=== PATIENT | female | born 1975 | race African-American/Black ===

== ENCOUNTER 2020-02-09 13:12 | Outpatient (CLI) | payer OTHER, SELFPAY ==
--- NOTE | ~2020-02-09 | US_ITS ---
EXAMINATION: US pelvic complete w TV DATE: 02/09/2020 13:45 INDICATION: Abnormal uterine bleeding, pelvic and right lower quadrant pain TECHNIQUE: Multiple transabdominal and endovaginal sonographic images of the pelvis were obtained. COMPARISON: None. FINDINGS: The uterus measures 14.4 x 8.3 x 11 cm. There is a 6.8 x 6.4 x 7 cm circumscribed heterogen eous mass of the right uterine body which has the appearance of an intramural fibroid. A 5.6 x 5.2 x 5.3 cm circumscribed heterogeneous mass of the left uterine body has the appearance of a subserosal f ibroid. The endometrial complex measures 7 mm. The right ovary measures 3.7 x 2.2 x 3.9 cm. The left ovary measures 2.8 x 1.8 x 1.7 cm. There is normal vascular flow in the ovaries. There is no free flu id in the pelvis. IMPRESSION: 1. Uterine fibroids as described above. Reviewed, dictated and finalized at location A. LIFE CONTROL OPERATOR
== END 2020-02-09 13:13 ==
PROVIDERS: PCP Internal Medicine; Visit Provider Obstetrics & Gynecology
DX: N93.9 Abnormal uterine and vaginal bleeding, unspecified (principal); D25.9 Leiomyoma of uterus, unspecified
CPT/HCPCS: 76830; 76856

== ENCOUNTER 2021-06-05 04:25 | Emergency (ER) | payer BC, SELFPAY ==
--- NOTE | ~2021-06-05 | CT_ITS ---
EXAMINATION: CT abdomen pelvis w con DATE: 06/05/2021 06:12 INDICATION: Right lower quadrant pain. TECHNIQUE: Computed tomography (CT) of the abdomen and pelvis was performed without intravenous contr ast. Automated exposure control and iterative reconstruction technique were employed. The dose-length product was 1437.94 mGy-cm. COMPARISON: None FINDINGS: Lung bases are clear. Heart size is normal. No pericardial or pleural effusion. 8.3 x 6.4 cm likely c avernous hemangioma at the posterior dome of the liver with peripheral discontiguous puddling of cont rast isointense to the aorta. Gallbladder, spleen, pancreas and bilateral adrenal glands are normal. Bilateral renal cysts, the largest on the right measuring up to 1.8 cm. There are few scattered colon ic diverticula without adjacent inflammatory change to suggest diverticulitis. The small bowel and ap pendix are normal. Bladder is normal. The uterus is not identified and has likely been surgically res ected. 3.9 cm right ovarian cyst. Small amount of ascites in the pelvis. No abscess or free intraperi toneal gas. No pathologically enlarged abdominal or pelvic lymphadenopathy. Bones are unremarkable. IMPRESSION: 1. Small amount of likely physiologic free fluid in the pelvis. No other acute intra-abdominal/pelvic process. 2. 3.9 cm right ovarian cyst. 3. 8.3 cm hepatic hemangioma. Reviewed, dictated and finalized at location A.
[2021-06-05 04:28] VITALS: BP 150/96; PULSE 84; RESP 16; TEMP 36.3; O2SAT 100
[2021-06-05 04:48] LABS: Basophils Percent Auto 0.3 % (0.2-1.2); Eosinophils Percent Auto 0.6 % (0-4.4); Hematocrit 38.1 % (37.0-47.0); Hemoglobin 11.9 g/dL (12.0-15.0); Immature Granulocyte Absolute 0.01 K/mm3 (0.00-0.031); Immature Granulocyte Percent A 0.1 % (0-0.5); Lymphocytes Absolute Auto 1.62 K/mm3 (0.9-3.2); Lymphocytes Percent Auto 24.1 % (18.3-44.2); Mean Corpuscular HGB Conc 31.2 g/dl (32-36); Mean Corpuscular Hemoglobin 28.5 pg (26-34); Mean Corpuscular Volume 91.1 fl (80-100); Mean Platelet Volume 11.7 fl (7.4-10.4); Monocytes Absolute Auto 0.5 K/mm3 (0.1-0.6); Neutrophils Absolute Auto 4.5 K/mm3 (1.3-6.7); Neutrophils Percent Auto 66.9 % (45.5-73.1); Platelet Count Result 172 k/mm3 (150-375); Red Blood Count 4.18 M/mm3 (4.2-5.4); Red Cell Distribution Width 13.5 % (11.5-14.5); White Blood Count 6.7 K/mm3 (4.5-10.0)
--- NOTE | 2021-06-05 04:53 | ED.ABDPAIN ---
HPI - Abdominal Pain General Chief Complaint: Abdominal Pain <Coy Blount MD - Last Filed: 06/05/21 04:54> Stated Complaint: RLQ ABD PAIN <Coy Blount MD - Last Filed: 06/05/21 04:54> Time Seen by Provider: 06/05/21 04:42 <Coy Blount MD - Last Filed: 06/05/21 04:54> Source: patient <Coy Blount MD - Last Filed: 06/05/21 04:54> Mode of arrival: ambulatory <Coy Blount MD - Last Filed: 06/05/21 04:54> Limitations: no limitations <Coy Blount MD - Last Filed: 06/05/21 04:54> History of Present Illness HPI narrative: Patient is a 45-year-old female complain right lower quadrant pain, 7 out of 10, sharp, nonradiating started last night. Patient denies any chest pain, shortness of breath, nausea, vomiting, diarrhea, urinary symptoms, fever or chills <Coy Blount MD - Last Filed: 06/05/21 04:54> Related Data Allergies/Adverse Reactions: Allergies Allergy/AdvReac Type Severity Reaction Status Date / Time No Known Allergies Allergy Verified 06/05/21 04:35 <Cyo Blount MD - Last Filed: 06/05/21 04:54> Review of Systems Review of Systems: All systems reviewed & are unremarkable except as noted in HPI and below <Coy Blount MD - Last Filed: 06/05/21 04:54> Constitutional: Constitutional: Denies body ache(s), Denies chills, Denies excessive sweating, Denies fatigue, Denies fever(s), Denies headache(s), Denies lethargy, Denies malaise, Denies weakness and Denies weight loss <Coy Blount MD - Last Filed: 06/05/21 04:54> Eyes: Eyes: Denies blurry vision, Denies change in vision and Denies loss of vision <Coy Blount MD - Last Filed: 06/05/21 04:54> ENT: Denies dizziness, Denies ear discharge, Denies headache(s), Denies lip swelling, Denies epistaxis, Denies nasal congestion, Denies neck pain, Denies throat swelling and Denies tongue swelling <Coy Blount MD - Last Filed: 06/05/21 04:54> Cardiovascular: Cardiovascular: Denies chest pain, Denies chest pain at rest, Denies chest pain with activity, Denies diaphoresis, Denies rapid heart rate, Denies edema, Denies irregular heart rhythm, Denies lightheadedness, Denies palpitations, Denies dyspnea and Denies dyspnea on exertion <Coy Blount MD - Last Filed: 06/05/21 04:54> Respiratory: Respiratory: Denies chest congestion, Denies cough, Denies hemoptysis, Denies dyspnea and Denies dyspnea on exertion <Coy Blount MD - Last Filed: 06/05/21 04:54> Gastrointestinal: Gastrointestinal: Denies melena, Denies hematochezia, Denies diarrhea, Denies nausea, Denies vomiting and Denies hematemesis <Coy Blount MD - Last Filed: 06/05/21 04:54> Musculoskeletal: Musculoskeletal: Denies abnormal gait, Denies deformity, Denies joint swelling, Denies limited range of motion, Denies neck pain and Denies numbness <Coy Blount MD - Last Filed: 06/05/21 04:54> Neurologic: Denies Abnormal speech present, Denies abnormal gait, Denies confusion, Denies dizziness, Denies headache(s), Denies focal weakness, Denies loss of vision, Denies numbness, Denies Other visual disturbances, Denies Sensory deficit (Neuro) and Denies weakness <Coy Blount MD - Last Filed: 06/05/21 04:54> Psychiatric: Psychiatric: Denies confusion, Denies depression, Denies auditory hallucinations, Denies homicidal ideation and Denies suicidal ideation <Coy Blount MD - Last Filed: 06/05/21 04:54> Endocrine: Endocrine: Denies cold intolerance, Denies excessive sweating, Denies fatigue, Denies heat intolerance and Denies palpitations <Coy Blount MD - Last Filed: 06/05/21 04:54> Hematologic/Lymphatic: Hematologic/Lymphatic: Denies easy bleeding and Denies easy bruising <Coy Blount MD - Last Filed: 06/05/21 04:54> Allergic/Immunologic: Allergic/Immunologic: Denies lip swelling, Denies throat swelling and Denies tongue swelling <Coy Blount MD - [place]
[2021-06-05 05:03] LABS: Alanine Aminotransferase 121 U/L (4-35); Albumin Level 4.6 g/dL (3.5-5.1); Alkaline Phosphatase 56 U/L (38-126); Anion Gap 10 mmol/L (8-16); Aspartate Amino Transferase 94 U/L (14-36); Bilirubin,Total 0.6 mg/dL (0.2-1.3); Blood Urea Nitrogen 5 mg/dL (7-17); Calcium 8.4 mg/dL (8.4-10.2); Carbon Dioxide 24 mmol/L (22-30); Chloride 103 mmol/L (98-107); Estimated CRCL calculation 143 ml/min; Estimated Glomerular Filt Rate > 60; Glucose 127 mg/dL (65-110); Lipase 39 U/L (23-300); Potassium 3.5 mmol/L (3.4-5.0); Sodium 137 mmol/L (137-145)
[2021-06-05] MEDS: SODIUM CHLORIDE 0.9% IV 1,000 ML 999 ML IV CONT (05:21)
[2021-06-05] MEDS: MORPHINE SULFATE (*CRX) 2 MG/ML INJ IV PUSH (05:22)
[2021-06-05] MEDS: ONDANSETRON INJ 4 MG/2 ML VIAL IV PUSH (05:23)
[2021-06-05 05:29] LABS: Add Urine Microscopic? YES; Appearance Urine Cloudy (Clear); Bacteria Urine Trace /hpf; Bilirubin Urine Negative (Negative); Blood Urine Negative (Negative); Color Urine Yellow (Yellow); Glucose Urine UA Negative (Negative); Ketones Urine 2+ mg/dL (Negative); Leukocyte Esterase Ur Trace LEU/UL (Negative); Mucus Urine Few /lpf; Nitrate Urine Negative (Negative); Protein Urine Negative (Negative); Specific Grav Ur 1.021 (1.001-1.035); Squamous Epithelial Cell Urine Many /hpf (Few); Urobilinogen Urine Negative mg/dL (<2.0)
[2021-06-05 07:11] VITALS: BP 143/94; PULSE 81; RESP 18; O2SAT 99
--- NOTE | 2021-06-05 07:20 | PC.NURSE ---
Assumed care of pt at this time, pt is alert and upright on stretcher, VS taken and stable. Discussed POC w/ pt and at bedside. No requests or concerns at this time. Lights dimmed. Call light in reach.
== END 2021-06-05 08:18 | disposition home or self-care (01) ==
PROVIDERS: Emergency Provider Emergency Medicine; PCP Internal Medicine
DX: R10.31 Right lower quadrant pain (principal); E11.9 Type 2 diabetes mellitus without complications; I10 Essential (primary) hypertension; J45.909 Unspecified asthma, uncomplicated; D64.9 Anemia, unspecified; N83.201 Unspecified ovarian cyst, right side; D18.09 Hemangioma of other sites
CPT/HCPCS: 36415; 74177; 80053; 81001; 83690; 85025; 87086; 96361; 96374; 96375; 99284; J2270; J2405; J7030; Q9967

== ENCOUNTER 2024-09-18 09:13 | Outpatient (CLI) | payer BC, SELFPAY ==
--- OUTSIDE RECORDS SUMMARY | 2024-09-18 09:21 | XMS_ITS | Clinical Summary ---
Author Organization [facility] Address [address] [place] [address] Care Team Providers Care Spanish Speaking Nanny Name Role Phone Derek Samuels DO Primary Care Provider [phone] Source Comments [facility],non-owned Affiliates and Associated Physician Practices is amultiple site organization consisting of ambulatory clinics and hospital sitesin [place], [place], [place] and [place]. This disclosure is being madepursuant to the Care Everywhere program and may not contain all information available regarding this patient. 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 Gender Identity Not on file Sexual Orientation Not on file Plan of Treatment Health Maintenance Due Date Last Done Comments COLOGUARD (AGES 45-75) - COL ON CA SCREENING 1974 COLON MONITORING 1974 COLONOSCOPY - COLON CA SCREENING 1974 CT COLONOGRAPHY - COLON CA SCREENING 1974 Colorectal Cancer Screening 1974 FIT - COLON CA SCREENING 1974 FLEX SIG - COLON CA SCREENING 1974 LIPID TESTING 1974 MAMMOGRAM 1974 HIV SCREENING 1989 HEPATITIS C SCREENING 07/19/1992 DTAP/TDAP/TD VACCINES (1 - Tdap) 1993 HEPATITIS B VACCINE (1 of 3 - 19+ 3-dose series) 1993 COVID-19 VACCINE (1 - 2023-2 5 season) 2023 DEPRESSION SCREENING 02/13/2024 PNEUMOCOCCAL VACCINE 50+ (1 of 1 - PCV) 2024 ZOSTER VACCINE (1 of 2) 2024 INFLUENZA VACCINE (#1) 2024 HIB VACCINE Aged Out No longer eligi ble based on patient's age to complete this topic HPV VACCINE Aged Out No longer eligi ble based on patient's age to complete this topic MENINGOCOCCAL (Group B) VACC INE SHARED DECISION-MAKING Aged Out No longer eligibl e based on patient's age to complete this topic MENINGOCOCCAL GROUPS A/C/Y/W VACCINE Aged Out No longer eligible b ased on patient's age to complete this topic Care Teams Spanish Speaking Nanny Relationship Specialty Start Date End Date Derek Samuels DO PCP - General Internal Medicine 08/17/14
--- OUTSIDE RECORDS SUMMARY | 2024-09-18 09:21 | XMS_ITS | Clinical Summary ---
Author Organization [facility] Care Team Providers Care Industrial/Organizational Psychologist Name Role Phone ConcettaDerek crespo Jeremie WEEKS Primary Care Provider [phone] Allergies No known active allergies Medications atorvastatin (LIPITOR) 10 mg tablet TK 1 T PO D 2 03/22/2018 Active amLODIPine (NORVASC) 5 mg tablet 03/28/2018 Active olmesartan-hydr ochlorothiazide (BENICAR HCT) 40-25 mg per tablet TK 1 T PO QD 0 01/31/2018 Active metFORMIN (GLUCOPHAGE) 1,000 mg tablet Take 1,000 mg by mouth daily. Active amoxicillin (amoxicillin) 500 mg tablet/capsule Take 2 capsules twice a day until finished 28 tablet/capsul e 03/28/2018 Active omeprazole (PriLOSEC) 20 mg capsule Take 1 capsule (20 mg total) by mouth every 12 (twelve) hours for 7 days. 14 capsule 03/28/2018 Active Active Problems Problem Noted Date Diagnosed Date Morbid obesity 03/28/2018 Medical History Medical History Date Comments Type 2 diabetes mellitus Hypercholesteremia Hypertension Obesity Family History Medical History Relation Name Comments Diabetes Father Hypertension Father Hypertension Mother morbid obesity Mother Diabetes Sister Hypertension Sister morbid obesity Sister Relation Name Status Comments Father Mother Sister Social History Tobacco Use Types Packs/Day Years Used Date Smoking Tobacco: Never Smokeless Tobacco: Never Alcohol Use Standard Drinks/Week Comments Yes 0 (1 standard drink = 0.6 oz pur e alcohol) ocasionally Comments Unknown Sex and Gender Information Value Date Recorded Sex Assigned at Not on file Legal Sex Female 2:58 PM PRESIDENT/GM PRODUCTION & LIVE EXPERIENCES Gender Identity Not on file Sexual Orientation Not on file Obstetrics History Last Filed Vital Signs Vital Sign Reading Time Taken Comments Blood Pressure 138/89 03/28/2018 12:55 PM PRESIDENT/GM PRODUCTION & LIVE EXPERIENCES Pulse 103 03/28/2018 12:55 PM PRESIDENT/GM [employer]ODUCTION & LIVE EXPERIENCES Temperature 36.9 C (98.5 F) 03/28/2018 12:55 PM PRESIDENT/GM PRODUCTION & LIVE EXPERIENCES Respiratory Rate - - Oxygen Saturation 100% 04/16/2017 11: 08 AM PRESIDENT/GM PRODUCTION & LIVE EXPERIENCES Inhaled Oxygen Concentration - - Weight 110.5 kg (243 lb 9.6 oz) 019 12:55 PM PRESIDENT/GM PRODUCTION & LIVE EXPERIENCES Height 164.3 cm (5' 4.69) 03/28/2018 1 2:55 PM PRESIDENT/GM PRODUCTION & LIVE EXPERIENCES Body Mass Index 40.93 03/28/2018 12:55 PM PRESIDENT/GM PRODUCTION & LIVE EXPERIENCES Plan of Treatment Health Maintenance Due Date Last Done Comments Cervical Cancer Screening 1974 Colon Cancer Screening-Colonoscopy 1974 Depression Screening 1974 Hepatitis C Screening 1974 DTaP/Tdap/Td Vaccine (1 - Tdap) 1985 Regular Well Visit/Exam 18-64 1992 Zoster Vaccine (1 of 2) 2024 Influenza Vaccine (#1) 2024 11/30/2020 Breast Cancer Screening-Mammogram 03/19/2025 03/19/2024, 04/24/2020, 06/02/2017 Hepatitis B Screening Completed 04/26/2016 Pneumococcal vaccine <65 Aged Out No longer eligible based on patient's age to complete this topic Procedures Procedure Name Priority Date/Time Associated Diagnosis Comments SCREENING MAMMOGRAM BILATERAL W KRISTOPHER W IMPLANTS Schedule Routine, Read Routine (OP Routine) 03/19/2024 7:31 AM PRESIDENT/GM [employer]ODUCTION & LIVE EXPERIENCES Visit for screening mammogram from Last 3 Months or Most Recently Relevant to Health Maintenance Results * Screening Mammogram Bilateral w Kristopher w Implants (03/19/2024 7:31 AM PRESIDENT/GM PRODUCTION & LIVE EXPERIENCES) Anatomical Region Laterality Modality Breast Bilateral Mammography Narrative 03/19/2024 1:00 PM PRESIDENT/GM PRODUCTION & LIVE EXPERIENCES Mammogram Technique: Bilateral Digital Breast Tomosynthesis, Bilateral C-view 2D Screening mammogram. Views obtained: bilateral craniocaudal; bilateral craniocaudal implant displaced; bilateral mediolateral oblique; and bilateral mediolateral oblique implant displaced. Computer Aided Detection was performed. Mammogram Findings: The present examination has been compared to prior imaging studies performed at [facility] on 06/02/2017 and 04/24/2020. There are scattered areas of fibroglandular density. There are bilateral sub-pectoral silicone gel implants. There is no suspicious abnormality in either breast. Impression: There is no mammographic evidence of malignancy. Annual screening mammography is recommended. OVERALL FINAL ASSESSMENT: BI-RADS CATEGORY 1: Negative. Procedure Note Angeline Lugo MD - 03/19/2024 Mammogram Technique: Bilateral Digital Breast Tomosynthesis, Bilateral C-view 2D Screening mammogram. Views obtained: bilateral craniocaudal; bilateralcraniocaudal implant displaced; bilateral mediolateral oblique; and bilateral mediolateral oblique implant displaced. Computer Aided Detection was performed. Mammogram Findings: The present examination has been compared to prior imaging studies performed at [facility] on 06/02/2017 and 04/24/2020. There are scattered areas of fibroglandular density. There are bilateral sub-pectoral silicone gel implants. There is no suspicious abnormality in either breast. Impression: There is no mammographic evidence of malignancy. Annual screening mammography is recommended. OVERALL FINAL ASSESSMENT: BI-RADS CATEGORY 1: Negative. us Self Screening Mammogram IMG MAMMO PROCEDURES Fi nal Result from Last 3 Months or Most Recently Relevant to Health Maintenance Insurance [employer] [facility] [place] [address] [facility] [place] [address] BLUE ACCESS [employer] Care Teams Industrial/Organizational Psychologist Relationship Specialty Start Date End Date Derek Samuels DO PCP - General Internal Medicine 04/10/17
--- OUTSIDE RECORDS SUMMARY | 2024-09-18 09:21 | XMS_ITS | Clinical Summary ---
Author Organization [facility] Address [address] [address] [place] [address] Phone Care Team Providers Care Docking Pilot Name Role Phone Derek Samuels DO Primary Care Provider Allergies No known active allergies Medications amLODIPine (NORVASC) 10 mg tablet Take 10 mg by mouth daily. Active olmesartan (BENICAR) 40 mg tablet Take 40 mg by mouth daily. Active atorvastatin (LIPITOR) 10 mg tablet Take 10 mg by mouth daily. Active albuterol sulfate 90 mcg/Actuation inhaler Take 2 Puffs by inhalation every 6 hours as needed for Shortness of Breath. Active HYDROcodone-lavon taminophen (HYCET) 7.5-325 mg/15 mL SolutionIndicat ions:Morbid obesity (CMS/HCC) Take 15 mL by mouth every 6 hours as needed for Pain, Severe. Max Daily Amount: 60 mL 300 mL 06/09/2021 2:52 PM CDT 2 Active ondansetron (ZOFRAN ODT) 4 mg Tablet, Rapid Dissolve Take 1 Tablet (4 mg) by mouth every 6 hours as needed for Nausea or Nausea/Emesis. 28 Tablet 06/09/2021 2:52 PM CDT 2 Active Active Problems Problem Noted Date Diagnosed Date Type 2 diabetes mellitus with hyperglycemia 05/14 HTN (hypertension), benign 06/08/2021 Borderline hyperlipidemia 06/08/2021 Elevated AST (SGOT) 06/08/2021 Abnormal AST and ALT 06/08/2021 Post-op pain 06/08/2021 Post-operative nausea and vomiting 06/08/2021 Immunizations Immunization Administration Dates Next Due (SVAS Biosana)(12 YR UP) COVID-19 VACCINE - EMERGENCY USE AUTHORIZATION, MRNA, [id number](PF) 30 MCG/0.3 ML IM SUSP 11/19/2020,02/20/2020,01/30/2020 Influenza Seasonal Unspecifi ed Formulation IM 11/30/2020 Family History Medical History Relation Name Comments No Known Problems Mother Relation Name Status Comments Father Mother Alive Social History Tobacco Use Types Packs/Day Years Used Date Smoking Tobacco: Never Smokeless Tobacco: Never Alcohol Use Standard Drinks/Week Comments Yes 0 (1 standard drink = 0.6 oz pur e alcohol) socially Comments No Sex and Gender Information Value Date Recorded Sex Assigned at Not on file Legal Sex Female 7:53 AM CDT Gender Identity Not on file Sexual Orientation Not on file Last Filed Vital Signs Vital Sign Reading Time Taken Comments Blood Pressure 163/88 06/09/2021 3:08 PM CDT Pulse 88 06/09/2021 3:08 PM CDT Temperature 36.9 C (98.5 F) 06/09/2021 3:08 PM CDT Respiratory Rate 18 06/09/2021 3:08 PM CDT Oxygen Saturation 100% 06/09/2021 3:08 PM CDT Inhaled Oxygen Concentration - - Weight 111.9 kg (246 lb 9.6 oz) 06/09/2021 4:08 AM CDT Height 162.6 cm (5' 4) 06/08/2021 9:25 AM CDT Body Mass Index 42.33 06/08/2021 9:25 AM CDT Plan of Treatment Health Maintenance Due Date Last Done Comments DIABETES ANNUAL FOOT EXAM 1992 DIABETES ANNUAL RETINAL EXAM 1992 DIABETES HBA1C Q 6 MONTHS 1992 DIABETES MICROALBUMIN ANNUAL SCREEN 1992 LDL CHOLESTEROL ANNUAL 1992 DTAP/TDAP/TD VACCINES (1 - Tdap) 1993 HEPATITIS B VACCINES (1 of 3 - 19+ 3-dose series) 1993 COLORECTAL SCREENING 07/25/2019 Colorectal Cancer Screening 07/25/2019 FIT-DNA Q 3 years 07/25/2019 FIT/FOBT Q 1 year 07/25/2019 Flex Sig/CT Colonography Q 5 years 07/25/2019 BREAST CANCER SCREENING 04/24/2021 04/24/2020 COVID-19 Vaccine ( season) 2023 11/19/2020, 02/20/2020, 01/30/2020 ZOSTER VACCINE (1 of 2) 2024 INFLUENZA VACCINE (#1) 2024 11/30/2020 Medical Devices Implanted Type Area Motor Scooter Mechanic Device Identifier Shelf Expiration Date Model / Serial / Lot Seamguard Endogia 60 Blk [id number] - [id number] Implanted:Qt y: 1 on 06/08/2021 by Kar Carty MD at [facility] N/A: Stomach [employer] [id number] 11/09/2023 12BSGTRI 60B / / [id number] Seamguard Endogia 60 Prpl [id number] - [id number] Implanted:Qt y: 1 on 06/08/2021 by Kar Carty MD at [facility] N/A: Stomach [employer] [id number] 12/07/2023 12BSGTRI 60P / / [id number] Seamguard Endogia 60 Prpl [id number] - [id number] Implanted:Qt y: 1 on 06/08/2021 by Kar Carty MD at [facility] N/A: Stomach [employer] [id number] 12/07/2023 12BSGTRI 60P / / [id number] Seamguard Endogia 60 Blk [id number] - [id number] Implanted:Qt y: 1 on 06/08/2021 by Kar Carty MD at [facility] N/A: Stomach [employer] [id number] 11/09/2023 12BSGTRI 60B / / [id number] Seamguard Endogia 60 Prpl [id number] - [id number] Implanted:Qt y: 1 on 06/08/2021 by Kar Carty MD at [facility] N/A: Stomach [employer] [id number] 12/07/2023 12BSGTRI 60P / / [id number] Insurance RX [employer] (INTERNAL) [facility] RX GENERIC COMMERCIAL Commercial BCBS TRUE BLUE PPO EXCHANGE Advance Directives For more information, please contact: [phone] * Full Code (Latest Code Status on File) Date Activated Date Inactivated Comments 06/08/2021 9:15 AM 06/09/2021 8:54 PM Care Teams Docking Pilot Relationship Specialty Start Date End Date Derek Samuels DO [address] [phone] PCP - General Internal Medicine 05/23/21
[2024-09-18 13:08] LABS: Hematocrit 42.3 % (37.0-47.0); Hemoglobin 13.6 g/dL (12.0-15.0); Immature Granulocyte Percent A 3.4 % (0-0.5); Lymphocytes Absolute Auto 1.98 K/mm3 (0.9-3.2); Mean Corpuscular HGB Conc 32.2 g/dl (32-36); Mean Corpuscular Hemoglobin 30.4 pg (26-34); Mean Corpuscular Volume 94.6 fl (80-100); Nucleated Red Blood Cells Absolute Auto 0.000 K/mm3 (0.0-0.012); Nucleated Red Blood Cells Perc 0.0 % (0.0-0.2); Platelet Count Result 174 k/mm3 (150-375); Red Blood Count 4.47 M/mm3 (4.2-5.4); White Blood Count 4.8 K/mm3 (4.5-10.0)
[2024-09-18 13:15] LABS: Alanine Aminotransferase 16 U/L (6-35); Albumin Level 4.7 g/dL (3.5-5.1); Alkaline Phosphatase 48 U/L (38-126); Anion Gap 8 mmol/L (4-12); Aspartate Amino Transferase 42 U/L (14-36); Bilirubin,Total 0.5 mg/dL (0.2-1.3); Blood Urea Nitrogen 6 mg/dL (7-17); Calcium 9.1 mg/dL (8.4-10.2); Carbon Dioxide 26 mmol/L (22-30); Chloride 101 mmol/L (98-107); Cholesterol 191 mg/dL (0-200); Estimated Glomerular Filt Rate > 60; Glucose 67 mg/dL (65-110); HDL Direct 77 mg/dL; Potassium 3.8 mmol/L (3.4-5.0); Sodium 135 mmol/L (137-145); Total Protein 7.6 g/dL (6.3-8.2); Triglycerides 42 mg/dL (<150)
[2024-09-18 13:46] LABS: Hemoglobin A1C 5.5 % (<5.7)
[2024-09-18 13:54] LABS: Ferritin 19.30 ng/mL (11.1-264)
[2024-09-18 13:55] LABS: MALB Creatinine Ratio < 9.4 mg/g (0-30)
[2024-09-18 14:26] LABS: Vitamin B12 672.0 pg/mL (239-931)
== END 2024-09-18 09:14 | disposition home or self-care (01) ==
LOC: ANHGOSHLAB 09:14
PROVIDERS: PCP Internal Medicine; Visit Provider Internal Medicine
DX: E78.2 Mixed hyperlipidemia (principal); I10 Essential (primary) hypertension; E11.9 Type 2 diabetes mellitus without complications; D64.9 Anemia, unspecified; E55.9 Vitamin D deficiency, unspecified
CPT/HCPCS: 36415; 80053; 80061; 82043; 82172; 82306; 82607; 82728; 82746; 83036; 85025

== ENCOUNTER 2024-11-19 00:27 | Day surgery (SDC) | payer BC, SELFPAY ==
[2024-11-11 08:40] VITALS: BMI 28.3
--- OUTSIDE RECORDS SUMMARY | 2024-11-19 00:32 | XMS_ITS | Encounter Summary ---
Author Organization [facility] Address [address] [place] [address] Care Team Providers Care Fusing Machine Feeder Name Role Phone MyaDerek figueroa Primary Care Provider [phone] Encounter Details Date Type Department Care Team (Late st Contact Info) Description 09/30/2020 Prep for Procedure [facility] Pre-Admission Testing [address] [place] [id number] Angeline Lewis MD [address] [place] [address] Social History Tobacco Use Types Packs/Day Years Used Date Smoking Tobacco: Never Smokeless Tobacco: Never Comments No Sex and Gender Information Value Date Recorded Sex Assigned at Not on file Legal Sex Female 3:26 PM CDT Gender Identity Not on file Sexual Orientation Not on file COVID-19 Exposure Response Date Recorded In the last month, have you been in contact with someone who was confirmed or suspected to have Coronavirus / COVID-19? No / Unsure 09/29/2020 1:53 PM CDT documented as of this encounter Functional Status * Calculated C-SSRS Risk Score (Lifetime/Recent) Answer Date of Assessment Author Status No Risk Indicated 09/30/2020 9:59 AM CDT Darcy Peck RN Active * [place] Suicide Severity Rating Scale (Screener/Recent Self-Report) Question Answer Date of Assessment Author Status 1. Wish to be (Past 1 Month) No 09/30/2020 9:59 AM CDT Darcy Peck RN Activ e 2. Non-Specific Active Suicidal Thoughts (Past 1 Month) No 09/30/2020 9:59 AM CDT Darcy Peck, RN Activ e 6. Suicidal Behavior (Lifetime) No 09/30/2020 9:59 AM CDT Darcy Peck RN Amol e documented as of this encounter Plan of Treatment Not on file documented as of this encounter Results * THYROID STIM HORMONE, TSH (09/29/2020 2:08 PM CDT) TSH 1.480 0.358 - 3.74 uIU/ML 09/29/2020 4:24 PM CDT [facility] Comment: HIGH DOSES OF BIOTIN MAY INTERFERE WITH THIS TEST RESULT. CORRELATION TO CLINICAL HISTORY AND PRESENTATION RECOMMENDED. 09/29/2020 2:08 PM CDT Angeline Lewis MD LABORATORY Final Re sult [facility] [address] [place] [address], * (ABNORMAL) COMPREHENSIVE METABOLIC PANEL (09/29/2020 2:08 PM CDT) GLUCOSE 80 70 - 99 MG/DL 09/29/2020 4:24 PM CDT [facility] BUN 8 7 - 18 MG/DL 09/29/2020 4:24 PM CDT [facility] CREATININE S/P/B 0.68 0.55 - 1.02 MG/DL 09/29/2020 4:24 PM CDT [facility] SODIUM S/P/B 138 136 - 145 MMOL/L 09/29/2020 4:24 PM CDT [facility] POTASSIUM S/P/B 4.5 3.5 - 5.1 MMOL/L 09/29/2020 4:24 PM CDT [facility] CHLORIDE S/P/B 104 100 - 108 MMOL/L 09/29/2020 4:24 PM CDT [facility] CO2 27.9 21 - 32 MMOL/L 09/29/2020 4:24 PM CDT [facility] CALCIUM S/P/B 8.3(L) 8.5 - 10.1 MG/DL 09/29/2020 4:24 PM CDT [facility] BILIRUBIN TOTAL S/P/B 0.4 0.2 - 1.2 MG/DL 09/29/2020 4:24 PM CDT [facility] Comment: THIS ASSAY IS NOT RECOMMENDED FOR PATIENTS UNDERGOING TREATMENT WITH ELTROMBOPAG DUE TO THE POTENTIAL FOR FALSELY ELEVATED RESULTS. TOTAL PROTEIN S/P/B 8.0 6.4 - 8.2 G/DL 09/29/2020 4:24 PM CDT [facility] ALBUMIN S/P/B 4.4 3.4 - 5.0 G/DL 09/29/2020 4:24 PM CDT [facility] AST 24 15 - 37 U/L 09/29/2020 4:24 PM CDT [facility] ALT 59(H) 14 - 55 U/L 09/29/2020 4:24 PM T [facility] ALKALINE PHOSPHATASE S/P/B 49(L) 50 - 136 U/L 09/29/2020 4:24 PM CDT [facility] ANION GAP 6.1 5 - 15 MMOL/L 09/29/2020 4:24 PM CDT [facility] BUN CREATININE RATIO 11.8 6 - 26 09/29/2020 4:24 PM CDT [facility] A/G RATIO 1.2 1.0 - 2.0 RATIO 09/29/2020 4:24 PM CDT [facility] EGFR NON-AFR. AMER. >90 >90 ML/MIN/1.7 3 M2 09/29/2020 4:24 PM CDT [facility] EGFR AFR. AMER. >90 >90 ML/MIN/1.7 3 M2 09/29/2020 4:24 PM CDT [facility] Comment: NOTE: eGFR is not calculated for patients <18 years of age. This is an estimated GFR (CKD EPI) and should not be used for calculating drug doses. 09/29/2020 2:08 PM CDT us Angeline Lewis MD LABORATORY Final Re sult [facility] [address] [place] [id number], * (ABNORMAL) CBC W/DIFF AUTOMATED (09/29/2020 2:08 PM CDT) WBC 6.7 4.5 - 11.0 x10'3/uL 09/29/2020 3:54 PM CDT [facility] RBC 4.31 4.20 - 5.40 x10'6/uL 09/29/2020 3:54 PM CDT [facility] HGB 12.5 12.0 - 16.0 G/DL 09/29/2020 3:54 PM CDT [facility] HCT 39.5 38.0 - 48.0 % 09/29/2020 3:54 PM CDT [facility] MCV 91.6 81.0 - 99.0 FL 09/29/2020 3:54 PM CDT [facility] MCH 29.0 27.0 - 31.0 PG 09/29/2020 3:54 PM CDT [facility] MCHC 31.6(L) 32.0 - 36.0 G/DL 09/29/2020 3:54 PM CDT [facility] RDW 12.6 11.5 - 14.5 % 09/29/2020 3:54 PM CDT [facility] PLT 160 130 - 400 x10'3/uL 09/29/2020 3:54 PM CDT [facility] MPV 11.9 9.3 - 12.2 FL 09/29/2020 3:54 PM CDT [facility] DIFFERENTIAL TYPE AUTOMATED DIFFERENTIAL 09/29/2020 3:54 PM CDT [facility] NEUTROPHILS % 45.5 % 09/29/2020 3:54 PM CDT [facility] LYMPHOCYTES % 40.9 % 09/29/2020 3:54 PM CDT [facility] MONOCYTES % 11.7 % 09/29/2020 3:54 PM CDT [facility] EOSINOPHILS 0.9 % 09/29/2020 3:54 PM CDT [facility] BASOPHILS 0.5 % 09/29/2020 3:54 PM CDT [facility] IMMATURE GRANS % 0.5 % 09/30/19 3:54 PM CDT [facility] ABS. NEUTROPHILS TOTAL 3.03 1.80 - 7.70 x10'3/uL 09/29/2020 3:54 PM CDT [facility] ABS. LYMPHOCYTES 2.72 1.00 - 4.80 x10'3/uL 09/29/2020 3:54 PM CDT [facility] ABS. MONOCYTES 0.78 0.24 - 0.86 x10'3/uL 09/29/2020 3:54 PM CDT [facility] ABS. EOSINOPHILS 0.06 0.04 - 0.36 x10'3/uL 09/29/2020 3:54 PM CDT [facility] ABS. BASOPHILS 0.03 0.01 - 0.08 x10'3/uL 09/29/2020 3:54 PM CDT [facility] ABS. IMMATURE GRANULOCYTES 0.03 0.00 - 0.49 x10'3/uL 09/29/2020 3:54 PM CDT [facility] 09/29/2020 2:08 PM CDT Angeline Lewis MD LABORATORY Final Re sult Performing Organization Address City/[facility]/ZIP Co de Phone Number [facility] [address] [place] [address], [place] [phone] * TYPE & SCREEN (09/29/2020 2:08 PM CDT) ABO/RH O POSITIVE 09/29/2020 4:44 PM CDT [facility] ANTIBODY SCREEN NEGATIVE 09/29/2020 4:44 PM CDT [facility] SAMPLE EXPIRATION 10/03/2020,2 359 09/30/2020 11:18 AM CDT [facility] COMMENT NO HISTORY OF TRANSFUSIONS , OR ANTIBODIES, NEW SPECIMEN NOT NEEDED 09/30/2020 11:18 AM CDT [facility] 09/29/2020 2:08 PM CDT Angeline Lewis MD BLOOD BANK TEST ORDERABL ES Final Result Performing Organization Address [facility]/ZIP Co de Phone Number [facility] [address] [place] [address], [place] [phone] documented in this encounter Visit Diagnoses Diagnosis Abnormal uterine bleeding (AUB)- Primary Fibroids Leiomyoma of uterus, unspecified documented in this encounter Care Teams Fusing Machine Feeder Relationship Specialty Start Date End Date Derek Samuels DO [address] [facility] [address] [place] [address] PCP - General INTERNAL MEDICINE 09/29/20 documented as of this encounter
--- OUTSIDE RECORDS SUMMARY | 2024-11-19 00:32 | XMS_ITS | Encounter Summary ---
Author Organization [facility] Address [address] [place] [address] Care Team Providers Care Condenser Winder Name Role Phone Derek Samuels DO Primary Care Provider [phone] Encounter Details Date Type Department Care Team (Late st Contact Info) Description 10/07/2020 Hospital Follow-up Call [facility] [place] [address] Essence Keene, RN Social History Tobacco Use Types Packs/Day Years [...] PM CDT documented as of this encounter Plan of Treatment Not on file documented as of this encounter Visit Diagnoses Not on filedocumented in this encounter Care Teams Condenser Winder Relationship Specialty Start Date End Date Derek Samuels DO [address] [place] [address] PCP - General INTERNAL MEDICINE 09/29/20 documented as of this encounter
--- OUTSIDE RECORDS SUMMARY | 2024-11-19 00:32 | XMS_ITS | Clinical Summary ---
Author Organization [facility] Address [address] [place] [address] Care Team Providers Care Blending Tank Tender Helper Name Role Phone Derek Samuels DO Primary Care Provider [phone] Allergies No known active allergies Medications amLODIPine 5 MG tablet Take 5 mg by mouth daily. Active Olmesartan Medoxomil-HCTZ (BENICAR HCT) 40-25 MG Tab Take 1 tablet by mouth daily. Active metFORMIN ER, MOD, 1000 MG 24 hr tablet Take 1,000 mg by mouth daily with breakfast. Active Cyanocobalamin (B-12 COMPLIANCE INJECTION IJ) Inject as directed weekly. Active vitamin D3, cholecalciferol , 1.25 MG (80945 UT) capsule Take 50,000 Units by mouth weekly. Active liraglutide 18 MG/3ML injection Inject into the skin daily. Active Active Problems Problem Noted Date Diagnosed Date S/P abdominal hysterectomy 09/30/2020 Family History Medical History Relation Comments Hypertension Brother 1 No Known Problems Brother 2 Asthma Father Diabetes Father Hypertension Father Hyperlipidemia Mother Hypertension Mother Arthritis Sister 1 rheumatoid arthr itis Diabetes Sister 1 Asthma Sister 2 No Known Problems Son 1 No Known Problems Son 2 Relation Status Comments Brother 1 Alive Brother 2 Alive Father Mother Alive Sister 1 Alive Sister 2 Alive Son 1 Alive Son 2 Alive Social History Tobacco Use Types Packs/Day Years Used Date Smoking Tobacco: Never Smokeless Tobacco: Never Comments No Sex and Gender Information Value Date Recorded Sex Assigned at Not on file Legal Sex Female 3:26 PM CDT Gender Identity Not on file Sexual Orientation Not on file Last Filed Vital Signs Vital Sign Reading Time Taken Comments Blood Pressure 130/85 10/01/2020 9:00 AM CDT Pulse 108 10/01/2020 9:00 AM CDT Temperature 37.2 C (98.9 F) 10/01/2020 9:00 AM CDT Respiratory Rate 16 10/01/2020 9:00 AM CDT Oxygen Saturation 100% 10/01/2020 9:00 AM CDT Inhaled Oxygen Concentration - - Weight 106.4 kg (234 lb 9.1 oz) 021 10:10 AM CDT Height 162.6 cm (5' 4) 09/27/2020 10:3 8 AM CDT Body Mass Index 40.26 09/27/2020 10:38 AM CDT Plan of Treatment Health Maintenance Due Date Last Done Comments Colorectal Cancer Screening Colonoscopy (10 Years) 1974 Annual Physical 1977 Hepatitis C 1992 DTaP, Tdap and Td Vaccines ( 1 - Tdap) 1993 Hepatitis B Vaccines (1 of 3 - 19+ 3-dose series) 1993 Mammogram Screening 2014 Cervical Cancer Screening Pa p Smear (Age 30 to 64) Every 3 Years 05/20/2021 05/20/2018 Cervical Cancer Screening Pa p with HPV Testing (Age 30 to 64) Every 5 Years 05/21/2023 05/20/2018 Cervical Cancer Screening wi th HPV 05/21/2023 Pneumococcal Vaccine: 50+ Years (1 of 1 - PCV) 2024 Zoster Vaccines (1 of 2) 2024 COVID-19 Vaccine (3 - 2024-2 6 season) 2024 02/20/2020, 01/30/2020 Influenza Adult (#1) 2024 Meningococcal B Vaccine Aged Out No l onger eligible based on patient's age to complete this topic Meningococcal Vaccine Aged Out No heaven amanuel eligible based on patient's age to complete this topic RSV Immunizations Under 20 Months Aged Out No longer eligible b ased on patient's age to complete this topic Insurance [facility] Advance Directives * Full Code (Latest Code Status on File) Date Activated Date Inactivated Comments 09/30/2020 3:25 PM 10/01/2020 2:46 PM Care Teams Blending Tank Tender Helper Relationship Specialty Start Date End Date Derek Samuels DO [address] [place] [address] PCP - General INTERNAL MEDICINE 09/29/20
--- OUTSIDE RECORDS SUMMARY | 2024-11-19 00:32 | XMS_ITS | Clinical Summary ---
Author Organization [facility] Address [address] [facility] [place] [address] Care Team Providers Care Bracelet Maker Novelty Name Role Phone Derek Samuels DO Primary Care Provider [phone] Source Comments [facility],non-owned Affiliates and Associated Physician Practices is amultiple site organization consisting of ambulatory clinics and hospital sitesin [place], [place], [place] and [place]. This disclosure is being madepursuant to the Care Everywhere program and may not contain all information available regarding this patient. Last updated 17.[facility] Social History Tobacco Use Types Packs/Day Years Used Date Smoking Tobacco: Never Assessed Comments Unknown Sex and Gender Information Value Date Recorded Sex Assigned at Not on file Legal Sex Female 6:29 AM AMPOULE SEALER Gender Identity Not on file Sexual Orientation [...] of 3 - 19+ 3-dose series) 1993 DEPRESSION SCREENING 02/13/2024 PNEUMOCOCCAL VACCINE 50+ (1 of 1 - PCV) 2024 ZOSTER VACCINE (1 of 2) 2024 COVID-19 VACCINE (1 - 2023-2 5 season) 2024 INFLUENZA VACCINE (#1) 2024 HIB VACCINE [...] age to complete this topic Care Teams Bracelet Maker Novelty Relationship Specialty Start Date End Date Derek Samuels DO PCP - General Internal Medicine 08/17/14
--- OUTSIDE RECORDS SUMMARY | 2024-11-19 00:32 | XMS_ITS | Clinical Summary ---
Author Organization [facility] Address [address] [place] [address] [place] [address] Phone Care Team Providers Care Oiler Helper Name Role Phone Derek Samuels DO [...] 06/08/2021 Immunizations Immunization Administration Dates Next Due ([employer])(12 YR UP) COVID-19 VACCINE - EMERGENCY USE AUTHORIZATION, MRNA, [id number](PF) 30 MCG/0.3 ML IM SUSP 11/19/2020,02/20/2020,01/30/2020 Influenza [...] years 07/25/2019 BREAST CANCER SCREENING 04/24/2021 04/24/2020 ZOSTER VACCINE (1 of 2) 2024 INFLUENZA VACCINE (#1) 2024 11/30/2020 COVID-19 Vaccine ( season) 2024 11/19/2020, 02/20/2020, 01/30/2020 Medical Devices Implanted Type Area Frozen Foods Manager Device Identifier Shelf Expiration Date Model / Serial / Lot Seamguard Endogia 60 Blk [id number] - [id number] Implanted:Qt y: 1 on 06/08/2021 by Kar Carty MD at [facility] N/A: [employer] [id number] 11/09/2023 12BSGTRI 60B / / [id number] Seamguard Endogia 60 Prpl [id number] - [id number] Implanted:Qt y: 1 on 06/08/2021 by Kar Carty MD at [facility] N/A: Stomach [employer] [id number] 12/07/2023 12BSGTRI 60P / / [id number] Seamguard Endogia 60 Prpl [id number] - [id number] Implanted:Qt y: 1 on 06/08/2021 by Kar Carty MD at [facility] N/A: Stomach [employer] [id number] 12/07/2023 12BSGTRI 60P / / [id number] Seamguard Endogia 60 Blk [id number] - [id number] Implanted:Qt y: 1 on 06/08/2021 by Kar Carty MD at [facility] [employer] N/A: Stomach [employer] [id number] 11/09/2023 12BSGTRI 60B / / [id number] Seamguard Endogia 60 Prpl [id number] - [id number] Implanted:Qt y: 1 on 06/08/2021 by Kar Carty MD at [facility] [employer] N/A: Stomach [employer] [id number] 12/07/2023 [id number] 60P / / [id number] Insurance RX [employer] (INTERNAL) [facility] RX GENERIC COMMERCIAL Commercial BCBS TRUE BLUE PPO EXCHANGE Advance Directives For more information, please contact: [phone] * Full Code (Latest Code Status on File) Date Activated Date Inactivated Comments 06/08/2021 9:15 AM 06/09/2021 8:54 PM Care Teams Oiler Helper Relationship Specialty Start Date End Date Derek Samuels DO [address] [id number] PCP - General Internal Medicine 05/23/21
[2024-11-19 09:10] VITALS: BP 143/99; PULSE 88; RESP 18; TEMP 36.1; O2SAT 100; BMI 28.0
[2024-11-19] MEDS: LACTATED RINGERS 1,000 ML 150 ML IV CONT (09:20)
--- NOTE | 2024-11-19 10:02 | WPDANESEPPF ---
Anes - Initial Pre Proc Eval Procedure: Operation Date: 11/19/24 10:30 Proposed Procedures p Screening Colonoscopy - Guillermo Moore DO Date/Time: 11/19/24 10:02 Surgeon: Guillermo Moore DO Pre Op Diagnosis: Neoplasm screening Patient Data Age: 49 Gender: F Height: 1.63 m Weight: 74.2 kg Last Vital Signs Temp 36.1 C L 11/19/24 09:10 Pulse 88 11/19/24 09:10 Resp 18 11/19/24 09:10 BP 143/99 H 11/19/24 09:10 Pulse Ox 100 11/19/24 09:10 O2 Del Method Room Air 11/19/24 09:10 Allergies Allergy/AdvReac Type Severity Reaction Status Date / Time No Known Allergies Allergy Verified 11/19/24 09:09 Home Medications ?Medication ?Instructions ?Recorded ?Confirmed ?Type albuterol sulfate 90 mcg/actuation 1 inh inhalation Q4H PRN shortness 03/14/22 11/11/24 Rx aerosol inhaler of breath or wheezing #8.5 grams estrogen Patch topical 09/18/24 09/18/24 History olmesartan 40 mg tablet 40 mg PO DAILY #90 tabs 09/19/24 11/19/24 Rx amlodipine 5 mg tablet 5 mg PO DAILY #90 tabs 09/29/24 11/19/24 Rx tirzepatide (weight loss) 2.5 2.5 mg subcut WEEKLY 11/11/24 11/19/24 History mg/0.5 mL subcutaneous pen injector (Zepbound) Patient hx anesthesia problems: none Family hx anesthesia problems: none Results Review: All pre-operative results and documents have been reviewed as part of the pre-operative evaluation. [facility] Past Medical History Medical History (Updated 11/19/24 @ 10:02 by Domingo Obrien DO) Anemia Asthma Hypertension Surgical History Surgical History H/O gastric sleeve History of endometrial ablation H/O tubal ligation Family History Family History Father Hypertension Asthma Patient's father is in good health Family history of alcoholism Family history of diabetes mellitus in first degree relative Diabetes mellitus Sibling Asthma Patient's brother is in good health Mother Patient's mother is in good health Grandparent Family history of malignant neoplasm Family history of malignant neoplasm of ovary Social History Social History Smoking status: Never smoker Alcohol intake: never Alcohol use details: occasional Substance use: never Substance use type: does not use Lack of Transportation: No Lack of Food: Never True Current Housing: I Have Housing Concerned About Future Housing: No Difficulty Paying Gas/Electric Bills: No Difficulty Paying for Meds: No Currently Unemployed: No Education: Master's Degree or Higher Difficulty w/ Childcare or Family Care: No Living arrangements: with family Spiritual care concerns: No Anes - Eval Final PreProcedure Day of Procedure 11/19/24 10:02 Patient weight: overweight Heart: regular rate and rhythm Lungs: clear to auscultation Airway: Mallampati scale class II Neurological: alert and oriented Last oral intake: >/= 8 hours ASA classification: II Emergent: no Anesthetic plan: proceed Anesthesia type and monitoring: general GIVS and standard monitoring Results Review: All pre-operative results and documents have been reviewed as part of the pre-operative evaluation. Informed Consent: The patient's anesthetic plan and its attendant risks and benefits were discussed with the patient/family/POA. Questions were solicited and answers provided to the satisfaction of the patient/family/POA.
--- NOTE | 2024-11-19 10:26 | PM.IMHP ---
H&P: HPI History of Present Illness Date/Time: 11/19/24 10:26 Chief Complaint: screening for colorectal cancer Narrative: this is a 49-year-old woman who presents for her 1st colonoscopy. She denies any hematochezia or melena. She denies family history of colon cancer. Review of Systems Review of Systems: All systems reviewed & are unremarkable except as noted in HPI and below Constitutional: Constitutional: Denies chills, Denies fever(s), Denies headache(s) and Denies weight loss Eyes: Eyes: Denies change in vision ENT: Denies dizziness, Denies headache(s), Denies neck mass and Denies throat swelling Cardiovascular: Cardiovascular: Denies chest pain, Denies lightheadedness and Denies dyspnea Respiratory: Respiratory: Denies cough, Denies dyspnea and Denies wheezing Gastrointestinal: Gastrointestinal: Denies abdominal pain, Denies change in bowel habits, Denies nausea and Denies vomiting Genitourinary: Genitourinary: Denies hematuria and Denies dysuria Musculoskeletal: Musculoskeletal: Reports as per HPI Integumentary/Breasts: Skin/Breast: Reports as per HPI Neurologic: Denies dizziness and Denies headache(s) Allergic/Immunologic: Allergic/Immunologic: Denies throat swelling and Denies wheezing PMFSH Past Medical History Medical History (Updated 11/19/24 @ 10:02 by Domingo Obrien DO) Anemia Asthma Hypertension Surgical History Surgical History H/O gastric sleeve History of endometrial ablation H/O tubal ligation Family History Family History Father Hypertension Asthma Patient's father is in good health Family history of alcoholism Family history of diabetes mellitus in first degree relative Diabetes mellitus Sibling Asthma Patient's brother is in good health Mother Patient's mother is in good health Grandparent Family history of malignant neoplasm Family history of malignant neoplasm of ovary Social History Social History Smoking status: Never smoker Alcohol intake: never Alcohol use details: occasional Substance use: never Substance use type: does not use Lack of Transportation: No Lack of Food: Never True Current Housing: I Have Housing Concerned About Future Housing: No Difficulty Paying Gas/Electric Bills: No Difficulty Paying for Meds: No Currently Unemployed: No Education: Master's Degree or Higher Difficulty w/ Childcare or Family Care: No Living arrangements: with family Spiritual care concerns: No Meds Home Medications and Allergies Home Medications ?Medication ?Instructions ?Recorded ?Confirmed ?Type albuterol sulfate 90 mcg/actuation 1 inh inhalation Q4H PRN shortness 03/14/22 11/11/24 Rx aerosol inhaler of breath or wheezing #8.5 grams estrogen Patch topical 09/18/24 09/18/24 History olmesartan 40 mg tablet 40 mg PO DAILY #90 tabs 09/19/24 11/19/24 Rx amlodipine 5 mg tablet 5 mg PO DAILY #90 tabs 09/29/24 11/19/24 Rx tirzepatide (weight loss) 2.5 2.5 mg subcut WEEKLY 11/11/24 11/19/24 History mg/0.5 mL subcutaneous pen injector (Zepbound) Allergies Allergy/AdvReac Type Severity Reaction Status Date / Time No Known Allergies Allergy Verified 11/19/24 09:09 Vital Signs Vital Signs - 24 hr 11/19/24 09:10 Temperature 97 F L Pulse Rate 88 Respiratory Rate 18 Blood Pressure 143/99 H Pulse Oximetry 100 Oxygen Delivery Room Air Exam Const: General: no acute distress and alert Orientation/consciousness: patient oriented x3 HENMT: Head: normocephalic and atraumatic Ears: hearing grossly normal bilaterally Face/Nose/Sinus: Normal nares present Mouth: Yes Normal oral and palatal mucosa present Eyes: Periorbital: periorbital findings normal Sclera: sclerae normal EOM: EOMs intact bilaterally Neck: Neck: normal visual inspection, no lymphadenopathy and trachea midline Chest: Chest palpation & inspection: normal inspection of the chest Resp: Effort & Inspection: normal respiratory effort Auscultation: clear to auscultation bilaterally Cardio: Jugular venous distension: no JVD Rate: regular rate Rhythm: regular rhythm Heart sounds: S1 normal heart sound present and S2 normal heart sound present Peripheral pulses: Peripheral pulses 2+ throughout GI: Inspection: normal to inspection GI Palp: Yes Soft to palpation, No Tenderness to palpation present (GI), No Guarding due to palpation present (GI) and No Rebound tenderness present Percussion: Yes normal to percussion Auscultation: normal bowel sounds : General: Yes no CVA tenderness Back/Spine/Pelvis: Back: no CVA tenderness Neuro: General: patient oriented x3, no focal motor deficits and CN's II-XI intact bilaterally Cognition (Neuro): normal cognition Speech: normal speech Motor exam (neuro): 5/5 motor strength present throughout Extrem: General: capillary refill normal and no clubbing, cyanosis or edema Assessment and Plan Assessment and plan (1) Screening for colon cancer: Code(s): Z12.11 - Encounter for screening for malignant neoplasm of colon Status: Acute Assessment and Plan: I have recommended colonoscopy. I have discussed the procedure, risks, benefits, and alternatives. Questions were answered. Patient is agreeable to proceed.
[2024-11-19 10:52] VITALS: BP 121/83; PULSE 97; RESP 15; O2SAT 100
[2024-11-19 11:02] VITALS: BP 134/92; PULSE 89; RESP 18; O2SAT 100
[2024-11-19 11:12] VITALS: BP 137/96; PULSE 83; RESP 17; O2SAT 100
== END 2024-11-19 11:16 | disposition home or self-care (01) ==
PROVIDERS: PCP Internal Medicine; Visit Provider Surgery
PROC: 0DJD8ZZ Inspection of Lower Intestinal Tract, Via Natural or Artificial Opening Endoscopic (ICD-10-PCS; CPT 45378; principal; 2024-11-19 10:30)
DX: Z12.11 Encounter for screening for malignant neoplasm of colon (principal); D64.9 Anemia, unspecified; J45.909 Unspecified asthma, uncomplicated; I10 Essential (primary) hypertension; Z79.51 Long term (current) use of inhaled steroids; Z79.85 Long-term (current) use of injectable non-insulin antidiabetic drugs; Z98.84 Bariatric surgery status; Z98.891 History of uterine scar from previous surgery; Z98.51 Tubal ligation status; Z80.41 Family history of malignant neoplasm of ovary
CPT/HCPCS: 45378; J7120